=== PATIENT | male | born 1955 | race Caucasian/White ===

== ENCOUNTER 2019-12-21 21:22 | Emergency (ER) | payer BC, OTHER ==
--- NOTE | 2019-12-21 21:44 | Emergency Department Report ---
- General Stated complaint: STROKE Time Seen by Provider: 12/21/19 21:22 Source: patient, EMS Mode of arrival: Stretcher Limitations: Physical Limitation - History of Present Illness Initial comments: Patient is a 64-year-old male that was brought in by EMS. Report received from EMS. EMS states that the patient was initially called as a lift assist but when EMS arrived, the patient was noted to have a right-sided weakness and a right facial droop. EMS then initiated a code stroke. Patient taken immediately to CT after arrival. MD Complaint: focal weakness -: Sudden - Related Data Previous Rx's Medication Instructions Recorded Last Taken Type Ibuprofen [Motrin] 800 mg PO Q8HR PRN #15 tablet 01/29/16 Unknown Rx Promethazine /Codeine 5 ml PO Q6H PRN #90 ml 01/29/16 Unknown Rx [Phenergan/Codeine 6.25-10 mg/5Ml] guaiFENesin [Mucinex] 600 mg PO Q6HR #15 tab.er.12h 01/29/16 Unknown Rx Allergies Allergy/AdvReac Type Severity Reaction Status Date / Time No Known Allergies Allergy Verified 01/29/16 05:09 ED Review of Systems ROS: Stated complaint: STROKE Other details as noted in HPI Comment: Unobtainable due to pts medical conditions ED Past Medical Hx - Past Medical History Previous Medical History?: Yes Hx Hypertension: Yes Hx Diabetes: Yes Hx Arthritis: Yes Additional medical history: chol- - Surgical History Past Surgical History?: No - Family History Family history: no significant - Social History Smoking Status: Never Smoker Substance Use Type: None - Medications Home Medications: Home Medications Medication Instructions Recorded Confirmed Last Taken Type Ibuprofen [Motrin] 800 mg PO Q8HR PRN #15 tablet 01/29/16 Unknown Rx Promethazine /Codeine 5 ml PO Q6H PRN #90 ml 01/29/16 Unknown Rx [Phenergan/Codeine 6.25-10 mg/5Ml] guaiFENesin [Mucinex] 600 mg PO Q6HR #15 tab.er.12h 01/29/16 Unknown Rx ED Physical Exam - General Limitations: Altered Mental Status, Physical Limitation General appearance: in no apparent distress, lethargic - Head Head exam: Present: atraumatic, normocephalic - Eye Eye exam: Present: normal appearance, PERRL Pupils: Present: normal accommodation - ENT ENT exam: Present: mucous membranes moist - Neck Neck exam: Present: normal inspection - Respiratory Respiratory exam: Present: normal lung sounds bilaterally. Absent: respiratory distress - Cardiovascular Cardiovascular Exam: Present: regular rate, normal rhythm. Absent: systolic murmur, diastolic murmur, rubs, gallop - GI/Abdominal GI/Abdominal exam: Present: soft, normal bowel sounds - Rectal Rectal exam: Present: deferred - Extremities Exam Extremities exam: Present: normal inspection - Back Exam Back exam: Present: normal inspection - Neurological Exam Neurological exam: Present: altered - Expanded Neurological Exam Expanded Best Eye Response ([place]): (2) open to pain Best Motor Response ([place]): (5) localizes to pain Best Verbal Response ([place]): (4) confused conversation [place] Total: 11 - Psychiatric Psychiatric exam: Present: normal affect, normal mood - Skin Skin exam: Present: warm, dry, intact, normal color. Absent: rash - Assessment Assessment Interval: Baseline - Level of Consciousness 1a. Level of Consciousness: arousable/minor stimuli - LOC Questions 1b. LOC Questions: answers 1 question correctly - LOC Command 1c. LOC Commands: performs 1 task correctly - Best Gaze 2. Best Gaze: forced deviation - Visual 3. Visual: no visual loss - Facial Palsy 4. Facial Palsy: partial paralysis - Motor Arm 5a. Motor Arm Left: some gravity effort 5b. Motor Arm Right: no movement - Motor Leg 6a. Motor Leg Left: some gravity effort 6b. Motor Leg Right: no movement - Limb Ataxia 7. Limb Ataxia: absent - Sensory 8. Sensory: severe/total sensory loss - Best Language 9. Best Language: mild/moderate aphasia - Dysarthria 10. Dysarthria: mild/moderate dysarthria - Extinction and Inattention 11. 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 Patient's current blood pressure is 136/78. Patient's mental status is unchanged. 12/21/19 21:30 Reevaluation #2: Patient blood pressure stable. Patient's mental status unchanged. 12/21/19 22:15 Reevaluation #3: Report given to EMS. EMS here to transport the patient to [facility]. 12/21/19 22:51 - Consultations Consultation #1: [facility] paged 12/21/19 21:51 Patient has been accepted by Dr. Junior at [facility]. Patient will be transferred via EMS to [facility] 12/21/19 22:09 ED Medical Decision Making - Lab Data Result diagrams: 12/21/19 22:02 12/21/19 22:02 - EKG Data -: EKG Interpreted by Me EKG shows normal: sinus rhythm, axis, intervals, QRS complexes, ST-T waves Rate: normal - Radiology Data Radiology results: report reviewed NONENHANCED CT SCAN OF THE HEAD: INDICATION / CLINICAL INFORMATION: 64 years Male; neuro deficits <6hrs or sx present upon awakening CODE STROKE [phone]. TECHNIQUE: Routine CT head without contrast. All CT scans at this location are performed using CT dose reduction for ALARA by means of automated exposure control. COMPARISON: None. FINDINGS: BRAIN / INTRACRANIAL CONTENTS: Abnormal CT scan Acute left putaminal hemorrhage is seen measuring 6 cm (longitudinal) x 4 cm (height) x 2 cm (transverse). No focal low attenuation areas seen within the hemorrhage. There is mass effect over the left lateral ventricle. Location of these hemorrhages suggestive of hypertensive lead. CRANIOCERVICAL JUNCTION: No significant abnormality. ORBITS: No significant abnormality of visualized orbits. SINUSES / MASTOIDS: No significant abnormality of the visualized paranasal s inuses or mastoid air cells. ADDITIONAL FINDINGS: Basilar artery is very tortuous IMPRESSION: Acute left basal ganglia hemorrhage with mass effect over the left lateral ventricle - Medical Decision Making Patient is a 64-year-old male who presents emergency room with right-sided weakness and right-sided facial droop. Patient had a sudden onset 30 minutes prior to arrival. Patient also found to have altered mental status. Patient's GCS is at 11. Patient was able to protect his airway entire time in ER. Patient's vital signs were stable. Patient oxygen saturation stable. Patient reevaluated multiple times while in the ER. A code stroke was called prior to patient's arrival. Patient was taken immediately to CT scan for a CT scan of the head. Patient CT scan showed a left basal ganglia bleed. Patient transferred to [facility] after I consulted with the neurosurgeon at [facility]. Patient was accepted by Dr. Junior. Patient's labs unremarkable. Patient's EKG shows no acute findings. Critical care time was documented due to multiple re-evaluations and the severity of the patient's clinical findings. - Differential Diagnosis ICH, CVA, weakness, Critical Care Time: Yes Critical care time in (mins) excluding proc time.: 55 Critical care attestation.: If time is entered above; I have spent that time in minutes in the direct care of this critically ill patient, excluding procedure time. Critical Care Time: 55 minutes ED Disposition Clinical Impression: Right sided weakness ICH (intracerebral hemorrhage) Qualifiers: Intracerebral hemorrhage etiology: nontraumatic Cerebral hemorrhage location: unspecified cerebral location Laterality: left Qualified Code(s): I61.9 - Nontraumatic intracerebral hemorrhage, unspecified CVA (cerebral vascular accident) Qualifiers: CVA mechanism: unspecified Qualified Code(s): I63.9 - Cerebral infarction, unspecified Disposition: DC/TX-70 ANOTHER TYPE HLTHCARE Is pt being admited?: No Does the pt Need Aspirin: No Condition: Critical Time of Disposition: 22:07
--- NOTE | 2019-12-21 21:55 | Cat Scan Report ---
NONENHANCED CT SCAN OF THE HEAD: INDICATION / CLINICAL INFORMATION: 64 years Male; neuro deficits <6hrs or sx present upon awakening CODE STROKE [phone]. TECHNIQUE: Routine CT head without contrast. All CT scans at this location are performed using CT dos e reduction for ALARA by means of automated exposure control. COMPARISON: None. FINDINGS: BRAIN / INTRACRANIAL CONTENTS: Abnormal CT scan Acute left putaminal hemorrhage is seen measuring 6 cm (longitudinal) x 4 cm (height) x 2 cm (transve rse). No focal low attenuation areas seen within the hemorrhage. There is mass effect over the left lateral ventricle. Location of these hemorrhages suggestive of hypertensive lead. CRANIOCERVICAL JUNCTION: No significant abnormality. ORBITS: No significant abnormality of visualized orbits. SINUSES / MASTOIDS: No significant abnormality of the visualized paranasal sinuses or mastoid air santosh ls. ADDITIONAL FINDINGS: Basilar artery is very tortuous IMPRESSION: Acute left basal ganglia hemorrhage with mass effect over the left lateral ventricle This exam was performed as part of a code stroke protocol. The exam was completed at [facility] at 9:26 PM eastern daylight saving time on 12/21/2019. The exam was reviewed at 8:46 P M Central daylight saving time and ER physician was notified at 8:47 PM Central daylight saving time. Signer Name: Tim Ngo MD Signed: 12/21/2019 9:51 PM Workstation Name: [id number]
[2019-12-21 22:18] VITALS: BP 136/83
[2019-12-21 22:21] LABS: Basophils # (Auto) 0.1 K/mm3 (0.0-0.1); Eosinophils # (Auto) 0.1 K/mm3 (0.0-0.4); Eosinophils % (Auto) 2.7 % (0.0-4.3); Hemoglobin 12.6 gm/dl (11.8-15.2); Lymphocytes # (Auto) 1.1 K/mm3 (1.2-5.4); Lymphocytes % (Auto) 19.7 % (13.4-35.0); Mean Corpuscular HGB Conc 32 % (32-34); Mean Corpuscular Volume 92 fl (84-94); Monocytes # (Auto) 0.5 K/mm3 (0.0-0.8); Monocytes % (Auto) 8.2 % (0.0-7.3); Platelet Count 241 K/mm3 (140-440); Red Blood Count 4.25 M/mm3 (3.65-5.03); Red Cell Distribution Width 14.1 % (13.2-15.2)
[2019-12-21 22:32] LABS: Partial Thromboplastin Time 24.6 Sec. (24.2-36.6)
[2019-12-21 22:45] LABS: BUN/Creatinine Ratio 8; Blood Urea Nitrogen 8 mg/dL (9-20); Calcium 8.6 mg/dL (8.4-10.2); Hemolysis Index 11
== END 2019-12-21 22:56 | disposition other institution (70) ==
LOC: ED 21:22
DX: I61.9 Nontraumatic intracerebral hemorrhage, unspecified (principal); I63.9 Cerebral infarction, unspecified; R29.810 Facial weakness; I10 Essential (primary) hypertension; E11.9 Type 2 diabetes mellitus without complications; E78.00 Pure hypercholesterolemia, unspecified; M19.90 Unspecified osteoarthritis, unspecified site; Z79.899 Other long term (current) drug therapy
CPT/HCPCS: 36415; 70450; 80048; 84484; 85025; 85610; 85670; 85730; 93005; 93010